=== PATIENT | male | born 1960 | race Caucasian/White ===

== ENCOUNTER 2019-11-17 08:01 | Day surgery (SDC) | payer BC ==
[2019-11-17 08:44] LABS: Absolute Lymphocytes (CBC) 1.4 K/uL (0.7-4.9); Basophils % 0.6 % (0-1.3); Hematocrit 40.4 % (39.6-49.0); Lymphocytes % 15.7 % (15.3-44.8); MPV 8.7 fL (7.6-11.3); RBC Red Blood Cell Count 4.27 M/uL (4.33-5.43)
[2019-11-17] MEDS ORDERED: Ringers Lactate 1,000 ML IV ONE ×2 (08:55→11:35)
--- NOTE | 2019-11-17 09:08 | RAD REPORT ---
EXAM DESCRIPTION: Mansi Ohara And Maite (2 Views)11/17/2019 8:47 am CLINICAL HISTORY: Preop FINDINGS: Mild bilateral interstitial lung opacities . 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
[2019-11-17 09:29] LABS: Potassium 4.2 mmol/L (3.5-5.1)
[2019-11-17] MEDS ORDERED: MIDAZOLAM HCL 2 MG/2 ML INJ ONE (09:34)
[2019-11-17] MEDS ORDERED: LIDOCAINE 2% MPF 5 ML VIAL ONE (09:34)
[2019-11-17] MEDS ORDERED: propofoL 200 MG/20 ML VIAL IV ONE (09:34)
[2019-11-17] MEDS ORDERED: FENTANYL CITR 250 MCG/5 ML ONE (09:34)
[2019-11-17] MEDS ORDERED: ONDANSETRON 4 MG/2 ML VIAL ONE (09:35)
[2019-11-17] MEDS: CEFAZOLIN/SWI 1gm 1 GM/10 ML SYR ONE ×2 (09:36→10:35)
[2019-11-17] MEDS ORDERED: dexAMETHasone 10 MG/ML VIAL ONE (10:27)
[2019-11-17] MEDS ORDERED: EPHEDRINE SULF 50 MG/ML VIAL ONE (10:56)
[2019-11-17] MEDS: HYDROMORPHONE HCL 1 MG/ML INJ ONE ×3 (11:11→11:33)
[2019-11-17] MEDS: MEPERIDINE HCL 25 MG/ML SYR ONE ×2 (11:21→11:26)
--- NOTE | 2019-11-17 11:22 | OP ---
Date of Procedure: 11/17/2019 Surgeon: Mike Ramirez MD Bed Setter: None. Preoperative Diagnosis: Perirectal abscess. Postoperative Diagnosis: Perirectal abscess. Procedure: Exam under anesthesia, rigid proctoscopy, incision and drainage and debridement of perire ctal abscess. Specimens: Pus. Finding: As above. Anesthesia: General. Complications: None. The patient tolerated the procedure in stable condition, taken to Recovery in good general condition. Procedure In Detail: Patient was brought to the OR and placed in supine position. General anesthesi a was begun. Patient was placed in the lithotomy position. Prepped and draped in usual sterile fash ion. Exam under anesthesia revealed approximately a 4 x 4 cm area of induration with central fluctua nce at the 11 o'clock position of the anus between the anus and the scrotum. There was another small 5 mm area near the base of the scrotum that had some oozing from it. This was slightly opened up wi th a small incision with Marcaine 0.5% being infiltrated locally and a 3 cm incision was made over th e perirectal abscess, and this was done after rigid proctoscopy confirmed and no intraluminal disease was present and then wound were irrigated. Bleeding was controlled with cautery. Cultures were don e. Wet-to-dry normal saline dressing change applied. Patient was awakened and taken to Recovery in good general condition. Discharge Note: The patient will go to Day Surgery and home when stable. Disposition: Home. Condition: Stable. Discharge Instructions: Resume home medications and diet. Activity as tolerated. No heavy lifting. Remove outer dressing in a.m. Sitz bath prior to dressing changes. Wet-to-dry normal saline dress ing changes daily. Teach family. Tylenol No. 3 one tablet p.o. q.4 p.r.n. pain, Cipro 500 mg p.o. b .i.d., doxycycline 100 mg p.o. q.12 hours. Follow up in my office in 2 weeks. Call for appointment. FÉLIX/DAYANNA Voice ID: [id number] Report ID: [id number]
[2019-11-17] MEDS ORDERED: MEPERIDINE HCL 25 MG/ML SYR ONE ×2 (11:38→11:57)
[2019-11-17] MEDS ORDERED: HYDROMORPHONE HCL 1 MG/ML INJ ONE (11:45)
[2019-11-17] MEDS ORDERED: CODEINE 30MG/APAP 300MG TAB ONE (12:18)
[2019-11-17 13:24] VITALS: O2SAT 96
[2019-11-17 13:26] VITALS: BP 97/55; TEMP 97.6
== END 2019-11-17 13:15 | disposition home or self-care (01) ==
LOC: OR 08:01
PROVIDERS: ATTEND Surgery
PROC: 0D9P0ZX Drainage of Rectum, Open Approach, Diagnostic (ICD-10-PCS; principal; 2019-11-17 10:15)
DX: K61.1 Rectal abscess (principal); I10 Essential (primary) hypertension; K21.9 Gastro-esophageal reflux disease without esophagitis; G47.33 Obstructive sleep apnea (adult) (pediatric); Z99.81 Dependence on supplemental oxygen; F17.200 Nicotine dependence, unspecified, uncomplicated; Z82.49 Family history of ischemic heart disease and other diseases of the circulatory system; Z83.6 Family history of other diseases of the respiratory system
CPT/HCPCS: 93005; 87070; 85025; 80048; 36415; 87205 ×2; 87075; 71046; 46040; U0003; J2704; J2250; J3010; J1100; J2175 ×3; J1170 ×2; J0690; J7120 ×2; J2405